=== PATIENT | male | born 1965 | race Caucasian/White ===

== ENCOUNTER 2023-02-25 09:51 | Outpatient (OUT) | payer MEDICAID, SELFPAY ==
[2023-02-25 10:56] LABS: Alanine Aminotransferase 45 U/L (16-63); Albumin Globulin Ratio 1.2; Alkaline Phosphatase 56 U/L (46-116); Aspartate Amino Transferase 29 U/L (15-37); Bilirubin Direct 0.2 mg/dL (0.0-0.2); Bilirubin Total 0.6 mg/dL (0.2-1.0); Globulin 3.4 g/dL; Total Protein 7.4 g/dL (6.4-8.2)
== END 2023-02-25 09:52 | disposition home or self-care (01) ==
PROVIDERS: Visit Provider Internal Medicine Interventional Cardiology
DX: E78.2 Mixed hyperlipidemia (principal)
CPT/HCPCS: 36415; 80076

== ENCOUNTER 2023-03-17 10:56 | Outpatient (OUT) | payer MEDICAID, SELFPAY ==
[2023-03-17 11:50] LABS: Alanine Aminotransferase 51 U/L (16-63); Albumin Globulin Ratio 1.3; Alkaline Phosphatase 55 U/L (46-116); Anion Gap 10.3; Aspartate Amino Transferase 34 U/L (15-37); BUN Creatinine Ratio 14.2; Bilirubin Total 0.5 mg/dL (0.2-1.0); Calcium 8.8 mg/dL (8.5-10.1); Carbon Dioxide 30.1 mmol/L (21.0-32.0); Chloride 103 mmol/L (98-107); Estimated GFR (African America >60 (>=60); Estimated GFR (Non-African Ame >60 (>=60); Glucose 141 mg/dL (74-106); Potassium 4.4 mmol/L (3.5-5.1); Sodium 139 mmol/L (136-145)
== END 2023-03-17 10:57 | disposition home or self-care (01) ==
PROVIDERS: PCP Family Medicine; Visit Provider Family Medicine
DX: Z13.1 Encounter for screening for diabetes mellitus (principal)
CPT/HCPCS: 36415; 80053

== ENCOUNTER 2023-03-30 10:12 | Outpatient (OUT) | payer MEDICAID, SELFPAY ==
[2023-03-30 12:06] LABS: Estimated Average Glucose 154 mg/dL
== END 2023-03-30 10:13 | disposition home or self-care (01) ==
LOC: LAB 10:18
PROVIDERS: PCP Family Medicine; Visit Provider Family Medicine
DX: R73.01 Impaired fasting glucose (principal)
CPT/HCPCS: 36415; 83036

== ENCOUNTER 2023-04-11 11:16 | Emergency (ER) | payer MEDICAID, SELFPAY ==
[2023-04-11 11:19] VITALS: PULSE 77; RESP 18; TEMP 36.9; O2SAT 97; BMI 41.6
[2023-04-11 11:58] LABS: Bilirubin Urine NEGATIVE (NEGATIVE); Blood Urine LARGE (NEGATIVE); Clarity Urine CLEAR (CLEAR); Color Urine YELLOW (YELLOW); Glucose Urine UA NEGATIVE (NEGATIVE); Ketones Urine NEGATIVE (NEGATIVE); Leukocyte Esterase Urine TRACE (NEGATIVE); Nitrite Urine NEGATIVE (NEGATIVE); Protein Urine TRACE mg/dL (NEG/TRACE); Specific Gravity Urine >=1.030 (1.005-1.025); pH Urine 5.5 (5.0-9.0)
[2023-04-11 12:08] LABS: Urine Microscopic Indicated YES
[2023-04-11 12:09] LABS: Bacteria Urine TRACE #/HPF (NONE SEEN); Mucus Urine NONE SEEN (NONE SEEN); Squamous Epithelial Cell Urine NONE SEEN #/LPF (NONE/RARE); WBC Urine 0-2 #/HPF (NONE SEEN)
[2023-04-11 12:10] LABS: Urine Culture Indicated NO
[2023-04-11] MEDS: KETOROLAC TROMETHAMINE 30 MG/ML VIAL IVP (12:36)
[2023-04-11] MEDS: HYDROMORPHONE HCL 1 MG/ML CARTRIDGE IVP (12:36)
--- NOTE | 2023-04-11 12:48 | CT_ITS ---
The [address] [address] Patient Name: MADELIN PULIDO MRN: [id number] date: 1965 Sex: M Assigned Patient Location: ER Current Patient Location: ER Accession/Order Number: [id number] Exam Date: 04/11/2023 12:44 Report Date: 04/11/2023 13:07 At the request of: BRYNN MIRANDA Procedure: CT abdomen pelvis wo con EXAM: CT abdomen pelvis wo con HISTORY: kidney stone COMPARISON: None. TECHNIQUE: Axial CT images were obtained of the abdomen and pelvis without intravenous contrast. Multiplanar reconstructions were performed. ABDOMEN/PELVIS FINDINGS: Lower Chest: Unremarkable. Liver: Hepatic steatosis is present. Biliary/Gallbladder: Unremarkable. Pancreas: Unremarkable. Spleen: Unremarkable. Adrenal Glands: Unremarkable. Kidneys: Mild right-sided hydronephrosis is present with a 3.3 mm calculus present in the urinary bladder lumen. There are a few nonobstructive punctate renal calculi present in the left kidney. Gastrointestinal/Peritoneum: No acute abnormality. The appendix is unremarkable. No free air or free fluid. Vascular: Mild scattered atherosclerotic calcifications are present. Lymph Nodes: No enlarged lymph nodes by CT size criteria. Pelvic Organs: Unremarkable. Bladder: Unremarkable. Bones: No acute osseous abnormality. Soft tissues: There is a small fat-containing right inguinal hernia. CT/CT abdomen pelvis wo con IMPRESSION: 1. Mild right-sided hydronephrosis with a 3.3 mm calculus in the urinary bladder. 2. Hepatic steatosis. 3. Small fat-containing right inguinal hernia. Electronically authenticated by: DRU CREWS Date: 04/11/2023 13:07
--- NOTE | 2023-04-11 13:27 | ED_ITS ---
HPI - Male Genitourinary General Chief complaint: Urogenital-Male Stated complaint: UTI SYMPTOMS, RIGHT FLANK PAIN Time Seen by Provider: 04/11/23 12:23 Source: patient Mode of arrival: walk-in Limitations: no limitations History of Present Illness HPI Narrative: this patient presents with complaint of right sided flank pain. He's had kidnney stones before. He doesn't know if he had a kidney infection or not. He is not on any antibiotics. He has not had fever shakes or chills. He's not seen a gross blood in his urine. He does have some discomfort over his right flank area. Related Data Allergies Allergy/AdvReac Type Severity Reaction Status Date / Time No Known Drug Allergies Allergy Verified 04/11/23 11:18 PFSH PFSH Social History Smoking status: Current every day smoker Exam Narrative Exam Narrative: wasn't awake alert moderate discomfort at this time. A quick urine specimen was obtained and sent to lab. It disclosed blood but no indication of white blood cells or infection. He was then examined and after the exam and history was sent for CT of the abdomen to rule out ureterolithiasis. Overall assessment moderate discomfort. He is very stoic and moves about comfortably. Examination abdomen there is no guarding rebound rigidity or peritoneal findings. Perkins sign is negative. He has no tenderness in the right lower q uadrant. Heart and lung examination was normal. He was given analgesics and sent for imaging. Constitutional Vital Signs, click to edit/add: Last Vital Signs Temp 98.4 F 04/11/23 11:19 Pulse 77 04/11/23 11:19 Resp 18 04/11/23 11:19 Pulse Ox 97 04/11/23 11:19 O2 Del Method Room Air 04/11/23 11:19 Course Vital Signs Vital signs: Vital Signs Temperature 98.4 F 04/11/23 11:19 Pulse Rate 77 04/11/23 11:19 Respiratory Rate 18 04/11/23 11:19 Pulse Oximetry 97 04/11/23 11:19 Oxygen Delivery Method Room Air 04/11/23 11:19 Temperature 98.4 F 04/11/23 11:19 Pulse Rate 77 04/11/23 11:19 Respiratory Rate 18 04/11/23 11:19 Pulse Oximetry 97 04/11/23 11:19 Oxygen Delivery Method Room Air 04/11/23 11:19 MDM - Male Genitourinary MDM Narrative Medical decision making narrative: patient's CT scan confirms some mild hydronephrosis on the right kidney but no other stones other than a 3.3 mm stone in the urinary bladder. It's quite likely these passed the stone. He has some small residual stones left. I don't believe he needs further treatment but we will give him urology number for follow-up as needed Lab Data Labs: Lab Results 04/11/23 Range/Units 11:27 Urine Color Yellow (YELLOW) Urine Clarity Clear (CLEAR) Urine pH 5.5 (5.0-9.0) Ur Specific Collins >=1.030 A (1.005-1.025) Urine Protein Trace (NEG/TRACE) mg/dL Urine Glucose (UA) Negative (NEGATIVE) mg/dL Urine Ketones Negative (NEGATIVE) mg/dL Urine Occult Blood Large A (NEGATIVE) Urine Nitrite Negative (NEGATIVE) Urine Bilirubin Negative (NEGATIVE) Urine Urobilinogen 1.0 (0.2-1.0) EU/dL Ur Leukocyte Esterase Trace A (NEGATIVE) Urine RBC 5-10 A (0-2) #/HPF Urine WBC 0-2 A (NONE SEEN) #/HPF Ur Squamous Epith Cells None seen (NONE/RARE) #/LPF Urine Bacteria Trace A (NONE SEEN) #/HPF Urine Mucus None seen (NONE SEEN) Ur Culture Indicated? No Discharge Plan Discharge Chief Complaint: Urogenital-Male Clinical Impression: Kidney stone Patient Disposition: Home, Self-Care Time of Disposition Decision: 13:31 Additional Instructions: continued drink plenty of fluids. Follow-up with local urology Dr. Desir as necessary Stand Alone Forms: Portal Instructions Referrals: LJ RIBEIRO [Primary Care Provider] - 1 week
== END 2023-04-11 13:59 | disposition home or self-care (01) ==
PROVIDERS: Emergency Provider Emergency Medicine Emergency Medical Services; PCP Family Medicine
DX: N13.2 Hydronephrosis with renal and ureteral calculous obstruction (principal); Z87.442 Personal history of urinary calculi; K76.0 Fatty (change of) liver, not elsewhere classified; K40.90 Unilateral inguinal hernia, without obstruction or gangrene, not specified as recurrent; F17.210 Nicotine dependence, cigarettes, uncomplicated
CPT/HCPCS: 74176; 81001; 96374; 96375; 99284; J1170

== ENCOUNTER 2023-12-20 09:24 | Outpatient (OUT) | payer MEDICAID, SELFPAY ==
[2023-12-20 11:38] LABS: Estimated Average Glucose 128 mg/dL; Glycohemoglobin A1C 6.1 % (4.5-6.2)
[2023-12-20 11:46] LABS: Chol HDL Ratio 3.3; Cholesterol 136 mg/dL (<=200); HDL Cholesterol 41 mg/dL (40-60); LDL Cholesterol Calculated 66.6 mg/dL; Triglycerides 142 mg/dL (<=150); VLDL CHOLESTEROL 28.4 mg/dL
== END 2023-12-20 09:25 | disposition home or self-care (01) ==
LOC: LAB 09:25
PROVIDERS: PCP Family Medicine; Visit Provider Family Medicine
DX: E11.65 Type 2 diabetes mellitus with hyperglycemia (principal)
CPT/HCPCS: 36415; 80061; 83036

== ENCOUNTER 2023-12-20 09:30 | Outpatient (OUT) | payer MEDICAID, SELFPAY ==
[2024-01-03 13:54] LABS: Chol HDL Ratio 3.3; Cholesterol 136 mg/dL (<=200); HDL Cholesterol 41 mg/dL (40-60); Triglycerides 142 mg/dL (<=150); VLDL CHOLESTEROL 28.4 mg/dL
== END 2023-12-20 09:31 | disposition home or self-care (01) ==
LOC: LAB 09:31
PROVIDERS: PCP Family Medicine; Visit Provider Internal Medicine Interventional Cardiology
DX: E78.5 Hyperlipidemia, unspecified (principal)
CPT/HCPCS: 36415; 80061; 83036

== ENCOUNTER 2025-01-18 09:18 | Outpatient (OUT) | payer MEDICAID, SELFPAY ==
--- OUTSIDE RECORDS SUMMARY | 2025-01-18 09:20 | XMS_ITS | CCD ---
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 Name Role Phone BERNARDA MCCONNELL Admitting Unavailable BERNARDA MCCONNELL Attending Unavailable GEMA ., DR CALHOUN Primary Care Unavailable BERNARDA MCCONNELL Admitting Unavailable MALLY, BERNARDA Attending Unavailable GEMA ., DR CALHOUN Primary Care Unavailable BERNARDA MCCONNELL Consulting Unavailable MALLY, BERNARDA Admitting Unavailable MALLY, BERNARDA Attending Unavailable GEMA ., DR CALHOUN Primary Care Unavailable BERNARDA MCCONNELL Consulting Unavailable BERNARDA MCCONNELL Admitting Unavailable MALLY, BERNARDA Attending Unavailable GEMA ., DR CALHOUN Primary Care Unavailable BERNARDA MCCONNELL Attending Unavailable Lj Ribeiro MD Primary Care Provider [phone] Lj Ribeiro MD Unavailable [phone] Lj Ribeiro MD Unavailable LJ RIBEIRO Attending Unavailable LJ RIBEIRO Attending Unavailable Allergies Allergy Classification Reported Allergen(s) Allergy Type Date of Onset Reaction(s) Facility (4 sources) atorvastatin; Translations: [ATORVASTATIN] Drug Allergy 11-03-2022 [facility] Repository (3 sources) tomato allergenic extract Drug Allergy 01-16-2014 [facility] Work Phone: Medications Current Medications Medication Drug Class(es) Dates Sig (Normalized) Sig (Original) 1 ml alirocumab 75 mg/ml auto-injector (3 sources) PCSK9 Inhibitor Start: 03-21-2023 Praluent 75 MG/ML injection Inject 75 mg under the skin every 14 (fourteen) days. 03/21/2023 Active ascorbic acid 60 mg / beta carotene 5000 unt / copper sulfate 40 mg / dl-alpha tocopheryl acetate 30 unt / sodium selenite 0.04 mg / zinc oxide 40 mg oral tablet (3 sources) Vitamin C Multiple Vitamin (Multivitamin Adult) tablet 1 (one) time each day at the same time. Active aspirin 81 mg delayed release oral tablet (3 sources) Platelet Aggregation Inhibitor, Nonsteroidal Anti-inflammatory Drug take 1 tablet by mouth in the morning aspirin 81 MG EC tablet Take 81 mg by mouth in the morning. Active ezetimibe 10 mg oral tablet (3 sources) Dietary Cholesterol Absorption Inhibitor take 1 tablet by mouth in the morning ezetimibe (Zetia) 10 MG tablet Take 10 mg by mouth in the morning. Active fenofibrate 160 mg oral tablet (3 sources) Peroxisome Proliferator Receptor alpha Agonist take 1 tablet by mouth in the morning fenofibrate (Triglide) 160 MG tablet Take 160 mg by mouth in the morning. Active 24 hr isosorbide mononitrate 30 mg extended release oral tablet (3 sources) Nitrate Vasodilator take 1 tablet by mouth in the morning, then take 1 tablet by mouth every twenty-four hours isosorbide mononitrate ER (Imdur) 30 MG 24 hr tablet Take 30 mg by mouth in the morning. Active metoprolol tartrate 25 mg oral tablet (3 sources) beta-Adrenergic Robin take 0.5 tablet by mouth in the morning metoprolol tartrate (Lopressor) 25 MG tablet Take 0.5 tablets by mouth in the morning and 0.5 tablets before bedtime. Active nitroglycerin 0.4 mg sublingual tablet (3 sources) Nitrate Vasodilator nitroglycerin (Nitrostat) 0.[address] 0.4 mg under the tongue every 5 (five) minutes if needed for chest pain. Active 12 hr ranolazine 1000 mg extended release oral tablet (3 sources) Anti-anginal Start: 03-31-2023 take 1 tablet by mouth every twelve hours in the morning ranolazine (Ranexa) 1000 MG 12 hr tablet Take 1,000 mg by mouth in the morning and 1,000 mg before bedtime. 03/31/2023 Active rosuvastatin calcium 40 mg oral tablet (3 sources) HMG-CoA Reductase Inhibitor take 1 tablet by mouth at bedtime rosuvastatin (Crestor) 40 MG tablet Take 40 mg by mouth at bedtime. Active Problems Active Problems Problem Classification Problem Date Documented Date Episodic/Chronic Complication of device; implant or graft (2 sources) Arteriosclerosis of autologous vein coronary artery bypass graft; Translations: [Atherosclerosis of coronary artery bypass graft(s) without angina pectoris] Onset: 07-09-2024 07-09-2024 Chronic Coronary atherosclerosis and other heart disease (11 sources) Atherosclerotic heart disease of [place] coronary artery without angina pectoris; Translations: [Coronary arteriosclerosis] Onset: 02-19-2022 Chronic Coronary atherosclerosis and other heart disease (2 sources) Presence of aortocoronary bypass graft; Translations: [Presence of aortocoronary bypass graft] Onset: 02-23-2024 Episodic Diabetes mellitus with complications (1 source) Hyperglycemia due to type 2 diabetes mellitus; Translations: [Type 2 diabetes mellitus with hyperglycemia] Onset: 05-22-2023 05-22-2023 Chronic Diabetes mellitus without complication (4 sources) Type 2 diabetes mellitus without complication; Translations: [Type 2 diabetes mellitus without complications] Onset: 05-22-2023 07-09-2024 Chronic Disorders of lipid metabolism (14 sources) Mixed hyperlipidemia; Translations: [Dyslipidemia] Onset: 07-05-2022 Resolved: 12-28-2023 Chronic Esophageal disorders (3 sources) Gastroesophageal reflux disease without esophagitis; Translations: [Gastro-esophageal reflux disease without esophagitis] Onset: 05-16-2023 05-16-2023 Chronic Essential hypertension (5 sources) Hypertensive disorder; Translations: [Essential (primary) hypertension] Onset: 05-22-2023 05-22-2023 Chronic Other nutritional; endocrine; and metabolic disorders (3 sources) Morbid obesity; Translations: [Morbid (severe) obesity due to excess calories] Onset: 05-16-2023 05-16-2023 Chronic Other nutritional; endocrine; and metabolic disorders (3 sources) Metabolic syndrome X; Translations: [Dysmetabolic syndrome X] Onset: 05-22-2023 05-22-2023 Chronic Pulmonary heart disease (4 sources) Pulmonary hypertension; Translations: [Pulmonary hypertension, unspecified] Onset: 07-09-2024 07-09-2024 Chronic Past or Other Problems Problem Classification Problem Date Documented Date Episodic/Chronic Other screening for suspected conditions (not mental disorders or infectious disease) (5 sources) Abnormal result of other cardiovascular function study; Translations: [Electrocardiogram abnormal] Onset: 07-05-2022 Resolved: 12-28-2023 Episodic Results Test Name Value Interpretation Reference Range Facil ity Office Visiton 02-23-2024 Follow-up visit [id number] Tip Sampson Jr. 1965 M Date Provider Department Center 02/23/2024 BERNARDA ANDUJAR Family History Family history unknown: Yes Level of Service:22102 CO OFFICE/OUTPATIENT ESTABLISHED LOW MDM 20 MIN Normal [facility] 36on 01-30-2024 36 I spoke with patient yesterday and made him aware that Dr. Mcconnell must not have realized that he hadn't been seen in the office in over a year. I made him an apt. Normal [facility] Telephoneon 01-11-2024 Telephone [id number] Tip Sampson Jr. 1965 M Date Provider Department Center 01/11/2024 SAGE LIND NIC Loza Family History Family history unknown: Yes Normal [facility] LIPID PROFILEon 11-12-2022 CHOL-HDL RATIO NORM SEE BELOW Normal [facility] Comment on above: Result Comment: 3.3 - 4.4 LOW RISK 4.4 - 7.1 AVERAGE RISK 7.1 - 11.0 MODERATE RISK >11.0 HIGH RISK Performed By: #### L IPID, LIVER #### [facility] [address] [place] [address] Dr. Carlos Reinoso Cholesterol [Mass/Vol] 210 mg/dL Critically high <=200 [facility] Comment on above: Performed By: #### L IPID, LIVER #### [facility] [address] [address] [address] Carlos Reinoso Cholesterol in HDL [Mass/Vol] 45 mg/dL Normal 40-60 [facility] Comment on above: Performed By: #### L IPID, LIVER #### [facility] [address] [place] [address] Dr. Carlos Reinoso Cholesterol in LDL [Mass/Vol] 135.6 mg/dL Normal [facility] Comment on above: Performed By: #### L IPID, LIVER #### [facility] [address] [address] [address] Carlos Reinoso Cholesterol.total/ Cholesterol in HDL [Mass ratio] 4.7 {ratio} Normal [facility] Comment on above: Performed By: #### L IPID, LIVER #### [facility] [address] [address] [address] Carlos Reinoso HDL NORMAL > or = 60 mg/dl - LOW CARDIOVASCULAR RISK <40 mg/dl - HIGH CARDIOVASCULAR RISK Normal [facility] Comment on above: Performed By: #### L IPID, LIVER #### [facility] [address] [address] [address] Carlos Reinoso LDL CALC NORMAL SEE BELOW Normal [facility] Comment on above: Result Comment: <100 mg/dl OPTIMAL 100 - 129 mg/dl NEAR OR ABOVE OPTIMAL 130 - 159 mg/dl BORDERLINE HIGH 160 - 189 mg/dl HIGH >190 mg/dl VERY HIGH Performed By: #### L IPID, LIVER #### [facility] [address] [address] [address] Carlos Reinoso Triglyceride [Mass/Vol] 147 mg/dL Normal <=150 [facility] Comment on above: Performed By: #### L IPID, LIVER #### [facility] [address] [address] [address] Carlos Reinoso VLDL CALC 29.4 mg/dL Normal [facility] Comment on above: Performed By: #### L IPID, LIVER #### [facility] [address] [address] [address] Carlos Reinoso LIVER PROFILEon 11-12-2022 Albumin [Mass/Vol] 3.6 g/dL Normal 3.4-5.0 [facility] Comment on above: Performed By: #### L IPID, LIVER #### [facility] [address] [address] [address] Carlos Reinoso Albumin/Globulin [Mass ratio] 1.0 {ratio} Normal [facility] Comment on above: Performed By: #### L IPID, LIVER #### [facility] [address] [address] [address] Carlos Reinoso ALP [Catalytic activity/Vol] 53 U/L Normal 46-116 [facility] Comment on above: Performed By: #### L IPID, LIVER #### [facility] [address] [address] [address] Carlos Reinoso ALT [Catalytic activity/Vol] 51 U/L Normal 16-63 [facility] Comment on above: Performed By: #### L IPID, LIVER #### [facility] [address] [address] [address] Carlos Reinoso AST [Catalytic activity/Vol] 25 U/L Normal 15-37 [facility] Comment on above: Performed By: #### L IPID, LIVER #### [facility] [address] [address] [address] Carlos Reinoso BILI, CONJUGATED 0.1 mg/dL Normal 0.0-0.2 [facility] Comment on above: Performed By: #### L IPID, LIVER #### [facility] [address] [place] [address] Dr. Carlos Reinoso Bilirubin [Mass/Vol] 0.4 mg/dL Normal 0.2-1.0 [facility] Comment on above: Performed By: #### L IPID, LIVER #### [facility] [address] [address] [address] Carlos Reinoso Globulin (S) [Mass/Vol] 3.5 g/dL Normal [facility] Comment on above: Performed By: #### L IPID, LIVER #### [facility] [address] [address] [address] Carlos Reinoso Protein [Mass/Vol] 7.1 g/dL Normal 6.4-8.2 [facility] Comment on above: Performed By: #### L IPID, LIVER #### [facility] [address] [address] [address] Carlos Reinoso LIPID PROFILEon 02-19-2022 CHOL-HDL RATIO NORM SEE BELOW Normal [facility] Comment on above: Result Comment: 3.3 - 4.4 LOW RISK 4.4 - 7.1 AVERAGE RISK 7.1 - 11.0 MODERATE RISK >11.0 HIGH RISK Performed By: #### L IPID, LIVER #### [facility] [address] [address] [address] Carlos Reinoso Cholesterol [Mass/Vol] 177 mg/dL Normal <=200 [facility] Comment on above: Performed By: #### L IPID, LIVER #### [facility] [address] [address] [address] Carlos Reinoso Cholesterol in HDL [Mass/Vol] 40 mg/dL Normal 40-60 [facility] Comment on above: Performed By: #### L IPID, LIVER #### [facility] [address] [address] [address] Carlos Reinoso Cholesterol in LDL [Mass/Vol] 108.0 mg/dL Normal [facility] Comment on above: Performed By: #### L IPID, LIVER #### [facility] [address] [address] [address] Carlos Reinoso Cholesterol.total/ Cholesterol in HDL [Mass ratio] 4.4 {ratio} Normal [facility] Comment on above: Performed By: #### L IPID, LIVER #### [facility] [address] [place] [address] Dr. Carlos Reinoso HDL NORMAL > or = 60 mg/dl - LOW CARDIOVASCULAR RISK <40 mg/dl - HIGH CARDIOVASCULAR RISK Normal [facility] Comment on above: Performed By: #### L IPID, LIVER #### [facility] [address] [address] [address] Carlos Reinoso LDL CALC NORMAL SEE BELOW Normal [facility] Comment on above: Result Comment: <100 mg/dl OPTIMAL 100 - 129 mg/dl NEAR OR ABOVE OPTIMAL 130 - 159 mg/dl BORDERLINE HIGH 160 - 189 mg/dl HIGH >190 mg/dl VERY HIGH Performed By: #### L IPID, LIVER #### [facility] [address] [address] [address] Carlos Reinoso Triglyceride [Mass/Vol] 145 mg/dL Normal <=150 [facility] Comment on above: Performed By: #### L IPID, LIVER #### [facility] [address] [address] [address] Carlos Reinoso VLDL CALC 29.0 mg/dL Normal [facility] Comment on above: Performed By: #### L IPID, LIVER #### [facility] [address] [address] [address] Carlos Reinoso LIVER PROFILEon 02-19-2022 Albumin [Mass/Vol] 3.8 g/dL Normal 3.4-5.0 [facility] Comment on above: Performed By: #### L IPID, LIVER #### [facility] [address] [place] [address] Dr. Carlos Reinoso Albumin/Globulin [Mass ratio] 1.2 {ratio} Normal [facility] Comment on above: Performed By: #### L IPID, LIVER #### [facility] [address] [place] [address] Dr. Carlos Reinoso ALP [Catalytic activity/Vol] 59 U/L Normal 46-116 [facility] Comment on above: Performed By: #### L IPID, LIVER #### [facility] [address] [place] [address] Dr. Carlos Reinoso ALT [Catalytic activity/Vol] 57 U/L Normal 16-63 [facility] Comment on above: Performed By: #### L IPID, LIVER #### [facility] [address] [place] [address] Dr. Carlos Reinoso AST [Catalytic activity/Vol] 41 U/L Critically high 15-37 [facility] Comment on above: Performed By: #### L IPID, LIVER #### [facility] [address] [place] [address] Dr. Carlos Reinoso BILI, CONJUGATED 0.1 mg/dL Normal 0.0-0.2 [facility] Comment on above: Performed By: #### L IPID, LIVER #### [facility] [address] [place] [address] Dr. Carlos Reinoso Bilirubin [Mass/Vol] 0.6 mg/dL Normal 0.2-1.0 [facility] Comment on above: Performed By: #### L IPID, LIVER #### [facility] [address] [place] [address] Dr. Carlos Reinoso Globulin (S) [Mass/Vol] 3.1 g/dL Normal [facility] Comment on above: Performed By: #### L IPID, LIVER #### [facility] [address] [place], [place] [address] Dr. Carlos Reinoso Protein [Mass/Vol] 6.9 g/dL Normal 6.4-8.2 [facility] Comment on above: Performed By: #### L IPID, LIVER #### [facility] [address] [place], [place] [address] Dr. Carlos Reinoso Vital Signs Date Time Vital Sign Value Performing Clinician Faci lity 07-09-2024 08:26-0500 Body height 170.2 cm Lj Ribeiro MD Work Phone: [facility] 07-09-2024 08:26-0500 Body mass index (BMI) [Ratio] 36.65 kg/m2 Lj Ribeiro MD Work Phone: [facility] 07-09-2024 08:26-0500 Body weight 106.14 kg Lj Ribeiro MD Work Phone: [facility] 07-09-2024 08:26-0500 Diastolic blood pressure 72 mm[Hg] Lj Ribeiro MD Work Phone: [facility] 07-09-2024 08:26-0500 Heart rate 58 /min Lj Ribeiro MD Work Phone: [facility] 07-09-2024 08:26-0500 SaO2% (BldA) [Mass fraction] 98 % Lj Ribeiro MD Work Phone: [facility] 07-09-2024 08:26-0500 Systolic blood pressure 132 mm[Hg] Lj Ribeiro MD Work Phone: [facility] Encounters Encounter Date Encounter Type Care Provider Facility Start: 07-09-2024 End: 07-09-2024 Bamboo flowsheet Lj Ribeiro MD Work Phone: [facility] Start: 07-09-2024 End: 07-09-2024 Bamboo flowsheet Lj Ribeiro MD Work Phone: [facility] Start: 07-09-2024 End: 07-09-2024 Office outpatient visit 25 minutes Lj Ribeiro MD Work Phone: [facility] Comment on above: Primary hypertension (CMS/HCC) (Primary Dx); Coronary artery disease involving [place] coronary artery of [place] heart without angina pectoris (CMS/HCC); Type 2 diabetes mellitus without complication, without long-term current use of insulin (CMS/HCC); Mixed dyslipidemia (CMS/HCC); Pulmonary hypertension (CMS/HCC) Start: 07-09-2024 End: 07-09-2024 ambulatory LJ RIBEIRO Not Available Start: 02-23-2024 End: 02-23-2024 ambulatory [facility] Start: 01-09-2024 End: 01-09-2024 ambulatory LJ RIBEIRO Not Available Start: 11-28-2022 ambulatory [facility] ty:H1 Start: 11-12-2022 End: 11-13-2022 ambulatory [facility] Facility:H1 Start: 03-10-2022 ambulatory [facility] ty:H1 Start: 02-19-2022 End: 02-20-2022 ambulatory [facility] Facility:H1 Procedures Date Procedure Procedure Detail Performing Clinician Start: 08-05-2020 Colonoscopy Lj short MD Work Phone: Plan of Treatment Date Care Activity Detail Author Start: 08-05-2030 Screening for malign ant neoplasm of colon [facility] Start: 07-09-2024 End: 07-09-2024 Patient encounter procedure 07/09/2024 8:30 AM EST Office Visit [facility] [address] [place] [address] Lj Ribeiro MD [address] [place] [address] (Fax) Arrived [facility] Comment on above: Arrived Start: 04-07-2024 Influenza vaccination Influenza Vacc ine (#1) [facility] Start: 06-30-2023 Hemoglobin A1c measurement Diabetes: Hemoglobin A1C [facility] Start: 02-09-1983 Urine screening for protein Diabetes: Urine Protein Screening [facility] Start: 02-09-1974 Glaucoma screening Diabetes: R etinopathy Screening [facility] Start: 1965 Screening for malign ant neoplasm of colon [facility] Immunizations Immunization Date Immunization Notes Care Provider Fa shimon 10-31-2018 tetanus toxoid, redu layton diphtheria toxoid, and acellular pertussis vaccine, adsorbed Lj Ribeiro MD Work Phone: [facility] Payers Date Payer Category Payer Medicaid [facility] [id number] 2022 Medicaid [id number] 1965 Unknown [id number] 1965 Unknown [id number] 1965 Unknown [id number] 1965 Unknown [id number] 1965 Unknown [id number] 1965 Unknown [id number] 1960 Self-pay 1960 Unknown [id number] Social History Date Type Detail Facility Start: 05-21-2023 Tobacco smoking stat [facility] Never smoked tobacco [facility] Start: 05-21-2023 Tobacco use and exposure Smoke less tobacco non-user [facility] Start: 01-09-2024 End: 07-09-2024 Alcoholic beverage intake Ex-drinker (finding) [facility] Start: 01-09-2024 End: 07-09-2024 History of Social function [facility] Start: 01-09-2024 End: 07-09-2024 Tobacco use panel [facility] Start: 1965 Sex assigned at Not on file [facility] History of Present illness Narrative 07-09-2024 Lj Ribeiro MD - 07/09/2024 8:30 AM EST Note Date & Type Note Facility 07-09-2024 History of Presen t illness Narrative Images from the original note were not included. Patient ID: Tip Sampson is a 59 y.o. male who presents for: Hypertension Patient is here for follow-up of elevated blood pressure. He is not exercising and is not adherent to a low-salt diet. Blood pressure is well controlled at home. Cardiac symptoms: none. Patient denies chest pain, dyspnea, irregular heart beat, lower extremity edema, and palpitations. Cardiovascular risk factors: advanced age (older than 55 for men, 65 for women), diabetes mellitus, dyslipidemia, hypertension, male gender, obesity (BMI >= 30 kg/m2), and sedentary lifestyle. Use of agents associated with hypertension: none. History of target organ damage: none. Hyperlipidemia Pt who presents for follow-up of dyslipidemia. A repeat fasting lipid profile was not done. The patient does not use medications that may worsen dyslipidemias (corticosteroids, progestins, anabolic steroids, diuretics, beta-blockers, amiodarone, cyclosporine, olanzapine). Exercise: never. Diabetes Mellitus Patient presents for follow up of diabetes. Current symptoms include: none. Symptoms have stabilized. Patient denies increased appetite, paresthesia of the feet, polydipsia, polyuria, and visual disturbances. Evaluation to date has included: hemoglobin A1C. Home sugars: patient does not check sugars. Review of Systems Constitutional: Negative for activity change and fatigue. Respiratory: Negative for cough, shortness of breath and wheezing. Cardiovascular: Negative for chest pain, palpitations and leg swelling. Neurological: Negative for light-headedness and headaches. Objective The patient is pleasant and in no acute distress. The neck is supple and trachea is midline. No masses are appreciated. The heart is regular rate and rhythm without S3, S4. No murmur. The patient has normal respiratory pattern. The breath sounds are symmetrical without evidence of rhonchi or rales. No wheezing. The skin is warm and dry. The lower extremities have trace edema. The patient has good eye contact and speech is clear. Appropriate affect. Visit Vitals BP 132/72 Pulse 58 Ht 5' 7 Wt 234 lb SpO2 98% BMI 36.65 kg/m Smoking Status Never BSA 2.24 m He did bring a paper copy of the hemoglobin A1c test at he was able to have a home kit for. He is at 6. Allergies Allergen Reactions Atorvastatin Other Reaction(s): Unknown Tomato Hives Current Outpatient Medications on File Prior to Visit Medication Sig Dispense Refill aspirin 81 MG EC tablet Take 81 mg by mouth in the morning. ezetimibe (Zetia) 10 MG tablet Take 10 mg by mouth in the morning. fenofibrate (Triglide) 160 MG tablet Take 160 mg by mouth in the morning. isosorbide mononitrate ER (Imdur) 30 MG 24 hr tablet Take 30 mg by mouth in the morning. metoprolol tartrate (Lopressor) 25 MG tablet Take 0.5 tablets by mouth in the morning and 0.5 tablets before bedtime. Multiple Vitamin (Multivitamin Adult) tablet 1 (one) time each day at the same time. nitroglycerin (Nitrostat) 0.[address] 0.4 mg under the tongue every 5 (five) minutes if needed for chest pain. Praluent 75 MG/ML injection Inject 75 mg under the skin every 14 (fourteen) days. ranolazine (Ranexa) 1000 MG 12 hr tablet Take 1,000 mg by mouth in the morning and 1,000 mg before bedtime. rosuvastatin (Crestor) 40 MG tablet Take 40 mg by mouth at bedtime. No current facility-administered medications on file prior to visit. 1. Primary hypertension (CMS/HCC) (Primary) Chronic problem, stable, to goal. We did review and it looks like Dr. Lopez refilled all of his prescriptions for 1 year. 2. Coronary artery disease involving [place] coronary artery of [place] heart without angina pectoris (CMS/HCC) Chronic problem, stable, comanaged with Cardiology. No evidence of angina or anginal equivalents. 3. Type 2 diabetes mellitus without complication, without long-term current use of insulin (CMS/HCC) Chronic problem, stable, to goal. Controlled with lifestyle changes encouraged same 4. Mixed dyslipidemia (CMS/HCC) Chronic problem, stable, to goal with an LDL of 67. 5. Pulmonary hypertension (CMS/HCC) Chronic problem, stable, asymptomatic. Specifically noting no shortness and breath or significant leg edema. Chronic problem The patient meets the criteria for polypharmacy; 5 or more prescriptions or multi-morbidity defined as 5 or more diagnoses. Polypharmacy can significantly increase the risk of preventable adverse drug events and negatively impact adherence. Consideration of diverse factors such as clinician agreement, patient perspective, and de-prescribing, as appropriate can improve patient outcomes while simplifying care. This requires longitudinal monitoring as there is at least a moderate risk of morbidity and requires at least a moderate degree of evaluation and management. documented in this encounter [facility] Progress note 02-23-2024 Note Date & Type Note Facility 02-23-2024 Note [facility] Subjective Tip Sampson Yoli is a 59 y.o. year old male patient being seen for 1 year follow up CAD and hyperlipidemia. Last lipid panel was done in December 2023. He says PCP told him he doesn't think he needs to be on Zetia because he's brought his numbers way down . Denies chest pain, SOB, palpitations, and lightheadedness/syncope. Patient Active Problem List Diagnosis Angina pectoris (CMS/HCC) Cardiovascular stress test abnormal Coronary arteriosclerosis Drug intolerance Dyspnea on exertion Electrocardiogram abnormal Hyperlipidemia Dysmetabolic syndrome X Gastroesophageal reflux disease Hypertension Mixed dyslipidemia Morbid obesity due to excess calories (CMS/HCC) Type 2 diabetes mellitus with hyperglycemia, without long-term current use of insulin (CMS/HCC) Family History Family history unknown: Yes Social History Tobacco Use Smoking status: Never Smokeless tobacco: Never Substance Use Topics Alcohol use: Not Currently HPI Fco is seen in follow up. 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 At a prior visit I added fenofibrate due to elevated TG. Then I added zetia 10 mg daily. At a prior visit I reduced isosorbide mononitrate to 30 mg daily due to low blood pressure and dizziness, this has subsided. At a prior visit due to his symptoms of decreased energy and decreased libido I reduced metoprolol tartrate to 12.5 mg twice daily. This has helped a lot. At a prior visit and due to persistent elevation of LDL and I stressed the need of diet and weight loss. He has done so. I had started him on Praluent. He is also on zetia and rosuvastatin. Today he reports that he has been doing very well with no symptoms of angina. He has no shortness of breath on exertion. Overall clinically he is doing well. He has lost weight and is exercising regularly. Review of Systems Musculoskeletal: Positive for back pain. Neurological: Positive for numbness. Objective Visit Vitals BP 126/72 (BP Location: Left arm, Patient Position: Sitting) Pulse 66 Ht 1.702 m (5' 7 ) Wt 106 kg (234 lb) SpO2 96% BMI 36.65 kg/m??? Smoking Status Never BSA 2.24 m??? Physical Exam Constitutional: Appearance: He is well-developed. He is obese. He is not ill-appearing. HENT: Head: Normocephalic and atraumatic. Nose: Nose normal. Eyes: General: No scleral icterus. Pupils: Pupils are equal, round, and reactive to light. Neck: Thyroid: No thyromegaly. Vascular: No JVD. Cardiovascular: Rate and Rhythm: Normal rate and regular rhythm. Pulses: Radial pulses are 2+ on the right side and 2+ on the left side. Heart sounds: Normal heart sounds. No murmur heard. No friction rub. No gallop. Pulmonary: Effort: Pulmonary effort is normal. No respiratory distress. Breath sounds: Normal breath sounds. No wheezing or rales. Chest: Chest wall: No tenderness. Abdominal: General: Bowel sounds are normal. There is no distension. Palpations: Abdomen is soft. Tenderness: There is no abdominal tenderness. Musculoskeletal: General: No swelling. Cervical back: Neck supple. Skin: General: Skin is warm and dry. Neurological: General: No focal deficit present. Mental Status: He is alert and oriented to person, place, and time. Psychiatric: Mood and Affect: Mood normal. Behavior: Behavior is cooperative. Judgment: Judgment normal. Allergies Allergies Allergen Reactions Atorvastatin Medications Current Outpatient Medications: aspirin 81 mg EC tablet, Take 1 tablet every day by oral route., Disp: , Rfl: fexofenadine (Nalini) 180 mg tablet, Take 1 tablet as needed by oral route for 30 days., Disp: , Rfl: alirocumab (Praluent Pen) 75 mg/mL pen injector, Inject 75 mg under the skin every 14 (fourteen) days., Disp: 6 mL, Rfl: 3 ezetimibe (Zetia) 10 mg tablet, Take 1 tablet (10 mg) by mouth once daily as directed., Disp: 90 tablet, Rfl: 3 fenofibrate (Lofibra) 160 mg tablet, Take 1 tablet (160 mg) by mouth once daily as directed. Need apt for further refills, Disp: 90 tablet, Rfl: 3 isosorbide mononitrate ER (Imdur) 30 mg 24 hr tablet, Take 1 tablet (30 mg) by mouth once daily as directed., Disp: 90 tablet, Rfl: 3 metoprolol tartrate (Lopressor) 25 mg tablet, TAKE 1/2 (ONE-HALF) OF A TABLET BY MOUTH TWICE DAILY, Disp: 90 tablet, Rfl: 3 nitroglycerin (Nitrostat) 0.4 mg SL tablet, Place 1 tablet (0.4 mg) under the tongue every 5 (five) minutes if needed for chest pain., Disp: 25 tablet, Rfl: 3 ranolazine (Ranexa) 1,000 mg 12 hr tablet, Take 1 tablet (1,000 mg) by mouth in the morning and at bedtime. Do not crush, chew, or split., Disp: 180 tablet, Rfl: 3 rosuvastatin (Crestor) 40 mg tablet, (more content not included)... [facility] Evaluation note Note Date & Type Note Facility Evaluation note Diagnosis Primary hypertension (CMS/HCC)- Primary Unspecified essential hypertension Coronary artery disease involving [place] coronary artery of [place] heart without angina pectoris (CMS/HCC) Type 2 diabetes mellitus without complication, without long-term current use of insulin (CMS/HCC) Mixed dyslipidemia (CMS/HCC) Pulmonary hypertension (CMS/HCC) Other chronic pulmonary heart diseases documented in this encounter [facility] Summary Purpose Family History No Family History Records FoundNo Family History Records FoundNo Family History Records Found Advance Directives No Advanced Directives Records FoundNo Advanced Directives Records FoundNo Advanced Directives Records Found Additional Source Comments (unrecognized sect ion and content) No Status Records FoundNo Status Records FoundNo Status Records Found INFORMATION SOURCE (unrecogn ized section and content) DATE CREATED AUTHOR 11/29/2022 [facility] DATE CREATED AUTHOR AUTHOR'S ORGANIZ ATION 02/26/2024 [facility] DATE CREATED AUTHOR AUTHOR'S ORGANIZ ATION 07/10/2024 [facility] Care Teams (unrecognized sec tion and content) [employer] 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 Relationship Specialty Start Date End Date Lj Ribeiro MD [address] [phone] (Fax) PCP - General Family Medicine 12/13/22 Lj Ribeiro MD [address] [place] [address] (Fax) PCP - [facility] 11/06/23 Lj Ribeiro MD [address] [address] (Fax) Family Medicine 12/13/22 [employer] 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 Relationship Specialty Start Date End Date Lj Ribeiro MD [address] [phone] (Fax) PCP - General Family Medicine 12/13/22 Lj Ribeiro MD [address] [address] (Fax) PCP - [facility] 11/06/23 Lj Ribeiro MD [address] [address] Family Medicine 12/13/22 Reason for Visit (unrecogniz ed section and content) Reason Comments Hypertension Hyperlipidemia Diabetes FOR RECORDS PERTAINING TO PATIENTS WHO ARE OR HAVE BEEN ENROLLED IN A CHEMICAL DEPENDENCY/SUBSTANCEABUSE PROGRAM, SOME INFORMATION MAY BE OMITTED. This clinical summary was aggregated from multiple sources. Caution should be exercised in using it in the provision of clinical care. This summary normalizes information from multiple sources, and as a consequence, information in this document may materially change the coding, format and clinical context of patient data. In addition, data may be omitted in some cases. CLINICAL DECISIONS SHOULD BE BASED ON THE PRIMARY CLINICAL RECORDS. [email or web address] [facility]. provides no warranty or guarantee of the accuracy or completeness of information in this document.
[2025-01-18 10:16] LABS: Alanine Aminotransferase 32 U/L (16-63); Albumin Globulin Ratio 1.1; Albumin Level 3.7 g/dL (3.4-5.0); Alkaline Phosphatase 68 U/L (46-116); Aspartate Amino Transferase 22 U/L (15-37); Bilirubin Direct 0.2 mg/dL (0.0-0.2); Bilirubin Total 0.8 mg/dL (0.2-1.0); Cholesterol 97 mg/dL (<=200); Globulin 3.4 g/dL; HDL Cholesterol 48 mg/dL (40-60); LDL Cholesterol Calculated 32.4 mg/dL; Total Protein 7.1 g/dL (6.4-8.2); Triglycerides 83 mg/dL (<=150); VLDL CHOLESTEROL 16.6 mg/dL
== END 2025-01-18 09:19 | disposition home or self-care (01) ==
LOC: LAB 09:18
PROVIDERS: PCP Family Medicine; Visit Provider Internal Medicine Interventional Cardiology
DX: E78.5 Hyperlipidemia, unspecified (principal)
CPT/HCPCS: 36415; 80061; 80076

== ENCOUNTER 2025-02-19 07:54 | Outpatient (OUT) | payer MEDICAID, SELFPAY ==
--- NOTE | 2025-02-19 08:05 | CA_ITS ---
Patient Name: MADELIN PULIDO MR#: [id number] : 1965 Exam Date: 02/19/2025 Ordering Doctor: DR BERNARDA BAL M.D. ECHOCARDIOGRAM REPORT PROCEDURE: CA ECHO DOPPLER COMPLETE INDICATIONS: CAD, Dizziness COMPARISON: None. DESCRIPTION: COMPLETE ECHOCARDIOGRAM Real-time transthoracic echocardiography with 2D, M-mode, spectral and color flow Doppler performed. QUALITY: Technical quality was good. LEFT VENTRICLE: Normal chamber size. Mildly increased left ventricular wall thickness. LV EF: Global left ventricular systolic function is normal. Calculated left ventricular ejection fraction is 68%. No wall motion abnormalities. DIASTOLIC: Normal diastolic function. ATRIAL SEPTUM: Inadequately seen. LEFT ATRIUM: Normal chamber size. RIGHT ATRIUM: Mild dilatation. RIGHT VENTRICLE: Mildly enlarged. Normal right ventricular systolic function. TRICUSPID VALVE: Normal mobility and thickness. No stenosis with trivial regurgitation. No evidence of pulmonary hypertension. Unable to assess right-sided pressures due to lack of measurable regurgitation. MITRAL VALVE: Normal mobility and thickness. No evidence of mitral valve stenosis. There is no mitral annular calcification. Trivial mitral regurgitation. AORTIC VALVE: Normal trileaflet appearance. Thickened aortic valve. Normal leaflet mobility. No evidence of aortic valve stenosis. No aortic regurgitation. AORTIC ROOT: Normal diameter and appearance. Mild dilatation of the ascending aorta measuring 3.9cm. PULMONIC VALVE: Normal thickness and mobility. No stenosis. Trivial regurgitation. PERICARDIUM: Anterior free space; trivial effusion versus fat pad. IVC: Collapses with inspiration. Normal size. CONCLUSION: 1. Global left ventricular systolic function is normal; visually estimated ejection fraction 60 to 65% 2. The right ventricle is mildly dilated with normal systolic function 3. Mildly increased left ventricular wall thickness 4. Mildly dilated right atrium 5. No significant valvular abnormalities 6. Mildly dilated ascending aorta 7. Anterior free space; trivial effusion versus Adult Echocardiography Procedure Report Left Ventricle LVEDD (3.7 - 5.6 cm): 5.16 cm LVESD (2.2 - 4.0 cm): 3.06 cm LVIVS thickness (0.6 - 1.2 cm): 1.21 cm LVPW thickness (0.5 - 1.0 cm): 1.21 cm e': 0.11 m/s E - e': 6.61 LVOT Max Gradient: 4.71 mm[Hg] LVOT Area (cm2): 1.09 m/s Peak Velocity (LVOT): 1.09 m/s Mean Velocity (LVOT): 0.65 m/s LVOT Diameter 2.07 cm Left Ventricular Ejection Fraction: 67.70 % Left Atrium LA Volume Index (2D A2C): 27.84 ml/m2 Left Atrium Systolic Dimension: 5.08 cm Mitral Valve MV E to A Ratio: 1.05 MV Max Gradient: MV Mean Gradient: Mitral Valve A-Wave Peak Velocity: 0.68 m/s Mitral Valve E-Wave Peak Velocity: 0.71 m/s Cardiovascular Orifice Area: Right Ventricle RV Internal Diastolic Dimension: 4.04 cm Aorta AO Root Diam: 3.58 cm Ascending Ao Diam: 3.91 cm Aortic Valve AoV Area (Peak Jorje): 3.15 cm2, 3.15 cm2 AoV Area (VTI): 3.55 cm2, 3.55 cm2 Deceleration [place]: Pressure Half-Time: Peak Velocity(Antegrade Flow): 1.15 m/s Peak Gradient(Antegrade Flow): 5.33 mm[Hg] Mean Velocity(Antegrade Flow): 0.70 m/s Mean Gradient(Antegrade Flow): 2.36 mm[Hg] Velocity Time Integral: 21.63 cm Tricuspid Valve Peak Velocity (Regurgitant Flow): Peak Velocity: Pulmonic Valve Mean Gradient: 1.85 mm[Hg] Mean Velocity: 0.62 m/s Peak Velocity: 0.93 m/s, 0.96 m/s Peak Gradient: 3.69 mm[Hg], 3.47 mm[Hg] Right Atrium Right Atrium Systolic Pressure: 59.94 ml, 59.94 ml Dictated by: Jacoby Walton M.D. on 02/19/2025 at 18:00 Approved by: Jacoby Walton M.D. on 02/19/2025 at 18:08
--- OUTSIDE RECORDS SUMMARY | 2025-02-19 08:14 | XMS_ITS | CCD ---
Author Organization [facility] Care Team Providers Care Telegraph Installer Name Role Phone BERNARDA MCCONNELL Admitting Unavailable MOUKARBEL, BERNARDA Attending Unavailable HEMEBRUNA ., DR CALHOUN Primary Care Unavailable NETTEUKADENIS, BERNARDA Admitting Unavailable MOUKAADENIKEEL, BERNARDA Attending Unavailable HEMEBRUNA ., DR CALHOUN Primary Care Unavailable BERNARDA MCCONNELL Consulting Unavailable NETTEUKADENIS, BERNARDA Admitting Unavailable MALLY, BERNARDA Attending Unavailable HEMEBRUNA ., DR CALHOUN Primary Care Unavailable BERNARDA MCCONNELL Consulting Unavailable MALLY, BERNARDA Admitting Unavailable MALLY, BERNARDA Attending Unavailable GEMA ., DR CALHOUN Primary Care Unavailable Lj Ribeiro MD Primary Care Provider Lj Ribeiro MD Unavailable Lj Ribeiro MD Unavailable LJ RIBEIRO Attending Unavailable LJ RIBEIRO Attending Unavailable Lj Ribeiro MD Primary Care Provider Lj Ribeiro MD Unavailable Lj Ribeiro MD Unavailable [phone] BERNARDA MCCONNELL Attending Unavailable MALLY, BERNARDA Attending Unavailable Allergies Allergy Classification Reported Allergen(s) Allergy Type Date of Onset Reaction(s) Facility (5 sources) atorvastatin; Translations: [ATORVASTATIN] Drug Allergy 11-03-2022 [facility] (4 sources) tomato allergenic extract Drug Allergy 01-16-2014 [facility] Work Phone: Medications Current Medications Medication Drug Class(es) Dates Sig (Normalized) Sig (Original) 1 ml alirocumab 75 mg/ml auto-injector (4 sources) PCSK9 Inhibitor Start: 03-21-2023 Praluent 75 MG/ML injection Inject 75 mg under the skin every 14 (fourteen) days. 03/21/2023 Active ascorbic acid 60 mg / beta carotene 5000 unt / copper sulfate 40 mg / dl-alpha tocopheryl acetate 30 unt / sodium selenite 0.04 mg / zinc oxide 40 mg oral tablet (4 sources) Vitamin C Multiple Vitamin (Multivitamin Adult) tablet 1 (one) time each day at the same time. Active aspirin 81 mg delayed release oral tablet (4 sources) Platelet Aggregation Inhibitor, Nonsteroidal Anti-inflammatory Drug take 1 tablet by mouth in the morning aspirin 81 MG EC tablet Take 81 mg by mouth in the morning. Active ezetimibe 10 mg oral tablet (4 sources) Dietary Cholesterol Absorption Inhibitor take 1 tablet by mouth in the morning ezetimibe (Zetia) 10 MG tablet Take 10 mg by mouth in the morning. Active fenofibrate 160 mg oral tablet (4 sources) Peroxisome Proliferator Receptor alpha Agonist take 1 tablet by mouth in the morning fenofibrate (Triglide) 160 MG tablet Take 160 mg by mouth in the morning. Active 24 hr isosorbide mononitrate 30 mg extended release oral tablet (4 sources) Nitrate Vasodilator take 1 tablet by mouth in the morning, then take 1 tablet by mouth every twenty-four hours isosorbide mononitrate ER (Imdur) 30 MG 24 hr tablet Take 30 mg by mouth in the morning. Active metoprolol tartrate 25 mg oral tablet (4 sources) beta-Adrenergic Robin take 0.5 tablet by mouth in the morning metoprolol tartrate (Lopressor) 25 MG tablet Take 0.5 tablets by mouth in the morning and 0.5 tablets before bedtime. Active nitroglycerin 0.4 mg sublingual tablet (4 sources) Nitrate Vasodilator nitroglycerin (Nitrostat) 0.[address] 0.4 mg under the tongue every 5 (five) minutes if needed for chest pain. Active 12 hr ranolazine 1000 mg extended release oral tablet (4 sources) Anti-anginal Start: 03-31-2023 take 1 tablet by mouth every twelve hours in the morning ranolazine (Ranexa) 1000 MG 12 hr tablet Take 1,000 mg by mouth in the morning and 1,000 mg before bedtime. 03/31/2023 Active rosuvastatin calcium 40 mg oral tablet (4 sources) HMG-CoA Reductase Inhibitor take 1 tablet by mouth at bedtime rosuvastatin (Crestor) 40 MG tablet Take 40 mg by mouth at bedtime. 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; Translations: [Coronary arteriosclerosis] Onset: 2 Chronic Coronary atherosclerosis and other heart disease (2 sources) Presence of aortocoronary bypass graft; Translations: [Presence of aortocoronary bypass graft] Onset: 5 Episodic Diabetes mellitus with complications (1 source) Hyperglycemia due to type 2 diabetes mellitus; Translations: [Type 2 diabetes mellitus with hyperglycemia] Onset: 3 05-22-2023 Chronic Diabetes mellitus without complication (5 sources) Type 2 diabetes mellitus without complication; Translations: [Type 2 diabetes mellitus without complications] Onset: 3 07-09-2024 Chronic Disorders of lipid metabolism (16 sources) Mixed hyperlipidemia; Translations: [Dyslipidemia] Onset: 2 Resolved: 4 Chronic Esophageal disorders (4 sources) Gastroesophageal reflux disease without esophagitis; Translations: [Gastro-esophageal reflux disease without esophagitis] Onset: 3 05-16-2023 Chronic Essential hypertension (6 sources) Hypertensive disorder; Translations: [Essential (primary) hypertension] Onset: 3 05-22-2023 Chronic Other nutritional; endocrine; and metabolic disorders (4 sources) Morbid obesity; Translations: [Morbid (severe) obesity due to excess calories] Onset: 3 05-16-2023 Chronic Other nutritional; endocrine; and metabolic disorders (4 sources) Metabolic syndrome X; Translations: [Dysmetabolic syndrome X] Onset: 3 05-22-2023 Chronic Other screening for suspected conditions (not mental disorders or infectious disease) (6 sources) Electrocardiogram abnormal; Translations: [Abnormal electrocardiogram [ECG] [EKG]] Onset: 2 Resolved: 4 12-28-2023 Episodic Pulmonary heart disease (5 sources) Pulmonary hypertension; Translations: [Pulmonary hypertension, unspecified] Onset: 4 07-09-2024 Chronic Results Test Name Value Interpretation Reference Range Facil ity Office Visiton 01-20-2025 Follow-up visit [id number] Madelin Pulido Jr. 1965 M Date Provider Department Center 01/20/2025 BERNARDA ANDUJAR Family History Family history unknown: Yes Level of Service:60045 [place] OFFICE/OUTPATIENT ESTABLISHED MOD MDM 30 MIN [facility] Orders Onlyon 01-20-2025 Orders Only [id number] Madelin Pulido Jr. 1965 M Date Provider Department Center 01/20/2025 BERNARDA ANDUJAR Family History Family history unknown: Yes [facility] ALL LIPID PROFILE (FASTING)o n 01-18-2025 CHOL HDL RATIO [address] [facility] hcare Comment on above: 3.3 - 4.4 LOW RISK 4.4 - 7.1 AVERAGE RISK 7.1 - 11.0 MODERATE RISK >11.0 HIGH RISK Cholesterol [Mass/Vol] 97 mg/dL NINF - 200 mg/dL [facility] Cholesterol in HDL [Mass/Vol] 48 mg/dL 40 - 60 mg/dL [facility] Comment on above: > or =60 mg/dl - LOW CARDIOVASCULAR RISK <40 mg/dl - HIGH CARDIOVASCULAR RISK Magnesium [Mass/Vol] 32.4 mg/dL [facility] Comment on above: <100 mg/dl OPTIMAL 100-129 mg/dl NEAR OR ABOVE OPTIMAL 130-159 mg/dl BORDERLINE HIGH 160-189 mg/dl HIGH >190 mg/dl VERY HIGH Magnesium [Mass/Vol] 16.6 mg/dL [facility] Triglyceride [Mass/Vol] 83 mg/dL NINF - 150 mg/dL [facility]HP LIVER PANELon 5 Albumin [Mass/Vol] 3.7 g/dL 3.4 - 5.0 g/dL [facility] ALBUMIN GLOBULIN RATIO 1.1 [facility] ALP [Catalytic activity/Vol] 68 U/L 46 - 116 U/L [facility] ALT [Catalytic activity/Vol] 32 U/L 16 - 63 U/L [facility] AST [Catalytic activity/Vol] 22 U/L 15 - 37 U/L [facility] Bilirubin [Mass/Vol] 0.8 mg/dL 0.2 - 1.0 mg/dL [facility] Bilirubin.indirect [Mass/Vol] 0.2 mg/dL 0.0 - 0.2 mg/dL [facility] Globulin (S) [Mass/Vol] 3.4 g/dL [facility] Protein [Mass/Vol] 7.1 g/dL 6.4 - 8.2 g/dL NO [facility] No Panel Informationon 01-18 [facility] Office Visiton 02-23-2024 Follow-up visit [id number] Madelin Pulido Jr. 1965 M Date Provider Department Center 02/23/2024 BERNARDA NADUJAR [facility] Family History Family history unknown: Yes Level of Service:40413 [place] OFFICE/OUTPATIENT ESTABLISHED LOW MDM 20 MIN Normal [facility] 36on 01-30-2024 36 I spoke with patient yesterday and made him aware that Dr. Mcconnell must not have realized that he hadn't been seen in the office in over a year. I made him an apt. Normal [facility] LIPID PROFILEon 11-12-2022 CHOL-HDL RATIO NORM SEE BELOW Normal [facility] Comment on above: Result Comment: 3.3 - 4.4 LOW RISK 4.4 - 7.1 AVERAGE RISK 7.1 - 11.0 MODERATE RISK >11.0 HIGH RISK Performed By: #### L IPID, LIVER #### [facility] [address] [place], [place] [address] Dr. Carlos Reinoso Cholesterol [Mass/Vol] 210 mg/dL Critically high <=200 [facility] Comment on above: Performed By: #### L IPID, LIVER #### [facility] [address] [place], [place] [address] Dr. Carlos Reinoso Cholesterol in HDL [Mass/Vol] 45 mg/dL Normal 40-60 [facility] Comment on above: Performed By: #### L IPID, LIVER #### [facility] [address] [place] [address] [address] Carlos Reinoso Cholesterol in LDL [Mass/Vol] 135.6 mg/dL Normal [facility] Comment on above: Performed By: #### L IPID, LIVER #### [facility] [address] [place] [address] [address] Carlos Reinoso Cholesterol.total/C holesterol in HDL [Mass ratio] 4.7 {ratio} Normal [facility] Comment on above: Performed By: #### L IPID, LIVER #### [facility] [address] [place] [address] [address] Carlos Reinoso HDL NORMAL > or = 60 mg/dl - LOW CARDIOVASCULAR RISK <40 mg/dl - HIGH CARDIOVASCULAR RISK Normal [facility] Comment on above: Performed By: #### L IPID, LIVER #### [facility] [address] [place] [address] Dr. Carlos Reinoso LDL CALC NORMAL SEE BELOW Normal [facility] Comment on above: Result Comment: <100 mg/dl OPTIMAL 100 - 129 mg/dl NEAR OR ABOVE OPTIMAL 130 - 159 mg/dl BORDERLINE HIGH 160 - 189 mg/dl HIGH >190 mg/dl VERY HIGH Performed By: #### L IPID, LIVER #### [facility] [address] [place] [address] Dr. Carlos Reinoso Triglyceride [Mass/Vol] 147 mg/dL Normal <=150 [facility] Comment on above: Performed By: #### L IPID, LIVER #### [facility] [address] [place] [address] Dr. Carlos Reinoso VLDL CALC 29.4 mg/dL Normal [facility] Comment on above: Performed By: #### L IPID, LIVER #### [facility] [address] [place] [address] [address] Carlos Reinoso LIVER PROFILEon 11-12-2022 Albumin [Mass/Vol] 3.6 g/dL Normal 3.4-5.0 [facility] Comment on above: Performed By: #### L IPID, LIVER #### [facility] [address] [place] [address] [address] Carlos Reinoso Albumin/Globulin [Mass ratio] 1.0 {ratio} Normal [facility] Comment on above: Performed By: #### L IPID, LIVER #### [facility] [address] [place] [address] [address] Carlos Reinoso ALP [Catalytic activity/Vol] 53 U/L Normal 46-116 [facility] Comment on above: Performed By: #### L IPID, LIVER #### [facility] [address] [place] [address] [address] Carlos Reinoso ALT [Catalytic activity/Vol] 51 U/L Normal 16-63 [facility] Comment on above: Performed By: #### L IPID, LIVER #### [facility] [address] [place] [address] [address] Carlos Reinoso AST [Catalytic activity/Vol] 25 U/L Normal 15-37 [facility] Comment on above: Performed By: #### L IPID, LIVER #### [facility] [address] [place] [address] [address] Carlos Reinoso BILI, CONJUGATED 0.1 mg/dL Normal 0.0-0.2 [facility] Comment on above: Performed By: #### L IPID, LIVER #### [facility] [address] [place] [address] [address] Carlos Reinoso Bilirubin [Mass/Vol] 0.4 mg/dL Normal 0.2-1.0 [facility] Comment on above: Performed By: #### L IPID, LIVER #### [facility] [address] [place] [address] [address] Carlos Reinoso Globulin (S) [Mass/Vol] 3.5 g/dL Normal [facility] Comment on above: Performed By: #### L IPID, LIVER #### [facility] [address] [place] [address] [address] Carlos Reinoso Protein [Mass/Vol] 7.1 g/dL Normal 6.4-8.2 [facility] Comment on above: Performed By: #### L IPID, LIVER #### [facility] [address] [place] [address] [address] Carlos Reinoso LIPID PROFILEon 02-19-2022 CHOL-HDL RATIO NORM SEE BELOW Normal [facility] Comment on above: Result Comment: 3.3 - 4.4 LOW RISK 4.4 - 7.1 AVERAGE RISK 7.1 - 11.0 MODERATE RISK >11.0 HIGH RISK Performed By: #### L IPID, LIVER #### [facility] [address] [place] [address] [address] Carlos Reinoso Cholesterol [Mass/Vol] 177 mg/dL Normal <=200 [facility] Comment on above: Performed By: #### L IPID, LIVER #### [facility] [address] [place] [address] [address] Carlos Rienoso Cholesterol in HDL [Mass/Vol] 40 mg/dL Normal 40-60 [facility] Comment on above: Performed By: #### L IPID, LIVER #### [facility] [address] [place] [address] [address] Carlos Reinoso Cholesterol in LDL [Mass/Vol] 108.0 mg/dL Normal [facility] Comment on above: Performed By: #### L IPID, LIVER #### [facility] [address] [place] [address] [address] Carlos Reinoso Cholesterol.total/C holesterol in HDL [Mass ratio] 4.4 {ratio} Normal [facility] Comment on above: Performed By: #### L IPID, LIVER #### [facility] [address] [place] [address] [address] Carlos Reinoso HDL NORMAL > or = 60 mg/dl - LOW CARDIOVASCULAR RISK <40 mg/dl - HIGH CARDIOVASCULAR RISK Normal [facility] Comment on above: Performed By: #### L IPID, LIVER #### [facility] [address] [place] [address] [address] Carlos Reinoso LDL CALC NORMAL SEE BELOW Normal [facility] Comment on above: Result Comment: <100 mg/dl OPTIMAL 100 - 129 mg/dl NEAR OR ABOVE OPTIMAL 130 - 159 mg/dl BORDERLINE HIGH 160 - 189 mg/dl HIGH >190 mg/dl VERY HIGH Performed By: #### L IPID, LIVER #### [facility] [address] [place] [address] [address] Carlos Reinoso Triglyceride [Mass/Vol] 145 mg/dL Normal <=150 [facility] Comment on above: Performed By: #### L IPID, LIVER #### [facility] [address] [place] [address] [address] Carlos Reinoso VLDL CALC 29.0 mg/dL Normal [facility] Comment on above: Performed By: #### L IPID, LIVER #### [facility] [address] [place] [address] [address] Carlos Reinoso LIVER PROFILEon 02-19-2022 Albumin [Mass/Vol] 3.8 g/dL Normal 3.4-5.0 [facility] Comment on above: Performed By: #### L IPID, LIVER #### [facility] [address] [place] [address] Dr. Carlos Reinoso Albumin/Globulin [Mass ratio] 1.2 {ratio} Normal [facility] Comment on above: Performed By: #### L IPID, LIVER #### [facility] [address] [place] [address] Dr. Carlos Reinoso ALP [Catalytic activity/Vol] 59 U/L Normal 46-116 [facility] Comment on above: Performed By: #### L IPID, LIVER #### [facility] [address] [place] [address] Dr. Carlos Reinoso ALT [Catalytic activity/Vol] 57 U/L Normal 16-63 [facility] Comment on above: Performed By: #### L IPID, LIVER #### [facility] [address] [place] [address] Dr. Carlos Reinoso AST [Catalytic activity/Vol] 41 U/L Critically high 15-37 [facility] Comment on above: Performed By: #### L IPID, LIVER #### [facility] [address] [place] [address] Dr. Carlos Reinoso BILI, CONJUGATED 0.1 mg/dL Normal 0.0-0.2 [facility] Comment on above: Performed By: #### L IPID, LIVER #### [facility] [address] [place], [place] [address] Dr. Carlos Reinoso Bilirubin [Mass/Vol] 0.6 mg/dL Normal 0.2-1.0 [facility] Comment on above: Performed By: #### L IPID, LIVER #### [facility] [address] [place], [place] [address] Dr. Carlos Reinoso Globulin (S) [Mass/Vol] 3.1 g/dL Normal [facility] Comment on above: Performed By: #### L IPID, LIVER #### [facility] [address] [place], [place] [address] Dr. Carlos Reinoso Protein [Mass/Vol] 6.9 g/dL Normal 6.4-8.2 [facility] Comment on above: Performed By: #### L IPID, LIVER #### [facility] [address] [place] [address] [address] Carlos Reinoso Vital Signs Date Time Vital Sign Value Performing Clinician Faci lity 07-09-2024 08:26-0500 Body height 170.2 cm Lj Ribeiro MD Work Phone: [facility] 07-09-2024 08:26-0500 Body mass index (BMI) [Ratio] 36.65 kg/m2 Lj Ribeiro MD Work Phone: [facility] 07-09-2024 08:26-0500 Body weight 106.14 kg Lj Ribeiro MD Work Phone: [facility] 07-09-2024 08:26-0500 Diastolic blood pressure 72 mm[Hg] Lj Ribeiro MD Work Phone: [facility] 07-09-2024 08:26-0500 Heart rate 58 /min Lj Ribeiro MD Work Phone: [facility] 07-09-2024 08:26-0500 SaO2% (BldA) [Mass fraction] 98 % Lj Ribeiro MD Work Phone: [facility] 07-09-2024 08:26-0500 Systolic blood pressure 132 mm[Hg] Lj Ribeiro MD Work Phone: [facility] Encounters Encounter Date Encounter Type Care Provider Facility Start: 01-20-2025 End: 01-20-2025 [facility] Start: 01-18-2025 End: 01-18-2025 [facility] Result Encounter Generic External Data Provider [facility] Unsolicited Start: 01-18-2025 End: 01-18-2025 [facility] Result Encounter Generic External Data Provider [facility] Unsolicited Start: 07-09-2024 End: 07-09-2024 Bamboo flowsheet Lj Ribeiro MD Work Phone: [facility] Start: 07-09-2024 End: 07-09-2024 Bamboo flowsheet Lj Ribeiro MD Work Phone: [facility] Start: 07-09-2024 End: 07-09-2024 Office outpatient visit 25 minutes Lj Ribeiro MD Work Phone: [facility] Comment on above: Primary hypertension (CMS/HCC) (Primary Dx); Coronary artery disease involving squaxin coronary artery of squaxin heart without angina pectoris (CMS/HCC); Type 2 diabetes mellitus without complication, without long-term current use of insulin (CMS/HCC); Mixed dyslipidemia (CMS/HCC); Pulmonary hypertension (CMS/HCC) Start: 07-09-2024 End: 07-09-2024 ambulatory LJ RIBEIRO Not Available Start: 02-23-2024 End: 02-23-2024 [facility] Start: 01-09-2024 End: 01-09-2024 ambulatory LJ RIBEIRO Not Available Start[facility] Start: 11-12-2022 End: 11-13-2022 ambulatory [facility] Facility:H1 Start: 03-10-2022 ambulatory [facility] Facili ty:H1 Start: 02-19-2022 End: 02-20-2022 ambulatory [facility] Facility:H1 Procedures Date Procedure Procedure Detail Performing Clinician Start: 01-18-2025 ALL LIPID PROFILE (FASTING) Generic External Data Provider Start: 01-18-2025 [facility] LIVER PANEL Generi c External Data Provider Start: 08-05-2020 Colonoscopy Lj short MD Work Phone: Plan of Treatment Date Care Activity Detail Author Start: 08-05-2030 Screening for malign ant neoplasm of colon [facility] Start: 04-07-2025 Influenza vaccination Influenz a Vaccine (Season Ended) [facility] Start: 09-24-2024 Hemoglobin A1c measurement Diabetes: Hemoglobin A1C [facility] Start: 07-09-2024 End: 07-09-2024 Patient encounter procedure 07/09/2024 8:30 AM EST Office Visit [facility] [address] [place] [address] Lj Ribeiro MD [address] [facility] [address] [place] [address] (Fax) Arrived [facility] Comment on above: Arrived Start: 04-07-2024 Influenza vaccination Influenza Vacc ine (#1) [facility] Start: 06-30-2023 Hemoglobin A1c measurement Diabetes: Hemoglobin A1C [facility] Start: 02-09-1983 Urine screening for protein Diabetes: Urine Protein Screening [facility] Start: 02-09-1974 Glaucoma screening Diabetes: R etinopathy Screening [facility] Start: 1965 Screening for malign ant neoplasm of colon [facility] Immunizations Immunization Date Immunization Notes Care Provider Fa cility 10-31-2018 tetanus toxoid, redu layton diphtheria toxoid, and acellular pertussis vaccine, adsorbed Lj Ribeiro MD Work Phone: [facility] Payers Date Payer Category Payer Medicaid [facility] [id number] 2022 Medicaid [id number] 1965 Unknown [id number] 1965 Unknown [id number] 1965 Unknown [id number] 1965 Unknown [id number] 1965 Unknown [id number] 1965 Unknown [id number] 1960 Self-pay 1960 Unknown [id number] Social History Date Type Detail Facility Start: 05-21-2023 Tobacco smoking stat [facility] Never smoked tobacco [facility] Start: 05-21-2023 Tobacco use and exposure Smoke less tobacco non-user [facility] Start: 01-09-2024 End: 07-09-2024 Alcoholic beverage intake Ex-drinker (finding) [facility] Start: 01-09-2024 End: 07-09-2024 History of Social function [facility] Start: 01-09-2024 End: 07-09-2024 Tobacco use panel [facility] Start: 1965 Sex assigned at Not on file [facility] Progress note 01-20-2025 Note Date & Type Note Facility 01-20-2025 Note [place] [facility] - [facility] Subjective Madelin De Leonjogre l Church is a 59 y.o. year old male patient being seen for 1 year follow up. Patient states he has been doing pretty good for the last several years with exercise, patient states he entered a 5k, patient states when he was jogging he got dizzy, SOB, BETH, and some mild chest pain, he stopped jogging and started walking fast the started jogging and and symptoms reappeared. Patient Active Problem List Diagnosis Angina pectoris Cardiovascular stress test abnormal Coronary arteriosclerosis Drug intolerance Dyspnea on exertion Electrocardiogram abnormal Hyperlipidemia Dysmetabolic syndrome X Gastroesophageal reflux disease Hypertension Mixed dyslipidemia Morbid obesity due to excess calories (CMS/HCC) Type 2 diabetes mellitus with hyperglycemia, without long-term current use of insulin ([facility]) Family History Family history unknown: Yes Social History Tobacco Use Smoking status: Never Smokeless tobacco: Never Substance Use Topics Alcohol use: Not Currently Drug use: Never HPI Fco is seen in follow up. He is a 59 yo man with prior history of CAD, s/p CABG in 2003 using BELTRAN to LAD, REUBEN to OM, saphenous venous graft to diagonal, and a sequential saphenous venous graft to PDA and posterolateral branch, with RCA ROUGH CARPENTER and stable angina and hyperlipidemia. At a [...] also on zetia and rosuvastatin. Today he is seen in follow-up and because he had issues running a [employer]. About 1 month ago he signed up for a 5K run and right before the race he took a sublingual nitro thinking that it is preventative of events during the running phase. During the run he felt short of breath, dizzy and lightheaded and nearly passed out so he had to stop. He had to walk most of the 5K. He reports that he did not really train for running 5K but he sometimes does the elliptical on and off without any issues. Other than that he has been free of angina. No clear shortness of breath with exertion. He has no leg edema. No palpitations. No passing out. Review of Systems Cardiovascular: Positive for dyspnea on exertion. Negative for chest pain. Respiratory: Positive for shortness of breath. Neurological: Positive for dizziness. Objective Visit Vitals BP 110/66 (BP Location: Left arm, Patient Position: Sitting) Pulse 65 Ht 1.702 m (5' 7 ) Wt 110 kg (243 lb) SpO2 95% BMI 38.06 kg/m??? Smoking Status Never BSA 2.28 m??? Physical Exam Constitutional: Appearance: He is [...] Allergen Reactions Atorvastatin Medications Current Outpatient Medications: alirocumab (Praluent Pen) 75 mg/mL pen injector, Inject 75 mg under the skin every 14 (fourteen) days., Disp: 6 mL, Rfl: 3 aspirin 81 mg EC tablet, Take 1 tablet every day by oral route., Disp: , Rfl: ezetimibe (Zetia) 10 mg tablet, Take 1 [...] directed., Disp: 90 tablet, Rfl: 3 metoprolol ta (more content not included)... [facility] History of Present illness Narrative 07-09-2024 Lj Ribeiro MD - 07/09/2024 8:30 AM EST Note Date & Type Note Facility 07-09-2024 History of Presen t illness Narrative Images from the original note were not included. Patient ID: Madelin Pulido is a 59 y.o. male who presents [...] 1 year. 2. Coronary artery disease involving squaxin coronary artery of squaxin heart without angina pectoris (CMS/HCC) Chronic problem, [...] evaluation and management. documented in this encounter [facility] Progress note 02-23-2024 Note Date & Type Note Facility 02-23-2024 Note [place] [facility] - [facility] Subjective Madelin Pulido Jr. is a 59 y.o. year old male [...] dyslipidemia Morbid obesity due to excess calories ([facility]) Type 2 diabetes mellitus with hyperglycemia, without long-term current use of insulin ([facility]) Family History Family history unknown: Yes Social [...] to PDA and posterolateral branch, with RCA ROUGH CARPENTER and stable angina and hyperlipidemia. At a [...] 40 mg tablet, (more content not included)... [facility] Evaluation note Note Date & Type Note Facility Evaluation note Diagnosis Primary hypertension (CMS/HCC)- Primary Unspecified essential hypertension Coronary artery disease involving squaxin coronary artery of squaxin heart without angina pectoris (CMS/HCC) Type 2 [...] pital DATE CREATED AUTHOR AUTHOR'S ORGANIZ ATION 07/10/2024 [facility] EPIC DATE CREATED AUTHOR AUTHOR'S ORGANIZ ATION 01/26/[address] [facility] Care Teams (unrecognized sec tion and content) Telegraph Installer Relationship Specialty Start Date End Date Lj Ribeiro MD [address] [place] [phone] (Fax) PCP - General Family Medicine 12/13/22 Lj Ribeiro MD [address] [place] [phone] (Fax) PCP - [facility] Jeffrey [facility] 11/06/23 Lj Ribeiro MD [address] [place] [phone] (Fax) Family Medicine 12/13/22 Telegraph Installer Relationship Specialty Start Date End Date Lj Ribeiro MD [address] [address] (Fax) PCP - General Family Medicine 12/13/22 Lj Ribeiro MD [address] [address] (Fax) PCP - [facility] 11/06/23 Lj Ribeiro MD [address] [place] [phone] (Fax) Family Medicine 12/13/22 Telegraph Installer Relationship Specialty Start Date End Date Lj Ribeiro MD [address] [place] [phone] (Fax) PCP - General Family Medicine 12/13/22 Lj Ribeiro MD 112 [facility] [address] [place] [address] PCP - MARLIN Murphy [facility] 11/06/23 Lj Ribeiro MD [address] [address] Family Medicine 12/13/22 Reason for Visit (unrecogniz [...] BE BASED ON THE PRIMARY CLINICAL RECORDS. [facility]. provides no warranty or guarantee of the accuracy or completeness of information in this document.
== END 2025-02-19 07:55 | disposition home or self-care (01) ==
LOC: CARD 07:56
PROVIDERS: PCP Family Medicine; Visit Provider Internal Medicine Interventional Cardiology
DX: R42 Dizziness and giddiness (principal); I25.10 Atherosclerotic heart disease of native coronary artery without angina pectoris
CPT/HCPCS: 93306

== ENCOUNTER 2025-02-24 09:55 | Outpatient (OUT) | payer MEDICAID, SELFPAY ==
--- OUTSIDE RECORDS SUMMARY | 2024-02-23 06:23 | XMS_ITS | Continuity of Care Document ---
Author Name [facility] Organization [facility] Care Team Providers Care Dental Secretary Name Role Phone 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 It does not include entries that were removed or entered in error. Problem Status Onset Date Problem Type Date of Resolution Comments Source Atherosclerosis of coronary artery without angina pectoris Active Condition [facility] Coronary arteriosclerosis (SNOMED CT 29739564) Active Condition [facility] Dysmetabolic syndrome X Active Condition [facility] Gastroesophageal Reflux Disease (SNOMED CT 666107066) Active Condition [facility] HTN - Hypertension (SNOMED CT 18049583) Active Condition [facility] Hyperlipidemia (SNOMED CT 71798642) Active Condition [facility] Medications Combined list of outpatient medications from Department of Defense and Veterans Affairs facilities.Medications provided include 1) outpatient medications from the last 15 months, and 2) patient-reported medications. Medication Details Route Status Patient Instructions Prescription Expires Prescription Number Last Dispense Date Ordering Provider Order Date Order Qty Source ASPIRIN 81MG TAB,CHEWABL E CHEW AND SWALLOW ONE TABLET BY MOUTH EVERY DAY ORAL ACTIVE MAIRANA JORDAN 2014 [facility] EZETIMIBE 10MG TAB TAKE ONE TABLET BY MOUTH EVERY DAY ORAL ACTIVE MARIANA JORDANTOPHER Duff 2018 [facility] FENOFIBRATE 145MG TAB TAKE ONE TABLET BY MOUTH EVERY DAY ORAL ACTIVE ZAC UGALDE 2020 [facility] ISOSORBIDE MONONITRATE 60MG TAB,SA TAKE ONE TABLET BY MOUTH EVERY DAY ORAL ACTIVE MARIANA JORDAN 2014 [facility] METOPROLOL TARTRATE 25MG TAB TAKE ONE-HALF TABLET BY MOUTH TWICE A DAY ORAL ACTIVE ZAC UGALDE 2020 [facility] RANOLAZINE 500MG TAB,SA TAKE ONE TABLET BY MOUTH EVERY 12 HOURS ORAL ACTIVE ZAC UGALDE [address] [facility] Allergies, Adverse Reactions, Alerts Combined list of allergies from Department of [facility] and [facility] facilities. It does not include entries that were removed or entered in error. Substance Category Reaction Severity Reaction type Status Date Reported Comments Source LIPITOR Propensity to adverse reactions to drug (finding) Muscle pain active 7 [facility] [place] Propensity to adverse reactions to food (finding) Urticaria active 4 [facility] Immunizations Combined list of available immunizations from the Department of [facility] and [facility] facilities. Immunization Series Date Given Administered By Site Reaction Lot Number CVX Code Drug Official Court Interpreter Status Comments Source TDAP 2018 115 complet ed [facility] Encounters Combined list of: 1) Encounters from Department of Veterans Affairs facilities going backup to the last 18 months, not all [place] inpatient encounters are included; 2) Encounters from the Department [facility] facilities going backup to 280 months. Location Location Details Encounter Type Encounter Number Reason For Visit Attending Provider ADM Date DC Date Status Disposition Source [facility] Outpatient Encounter [id number] 02/22 [facility] Social History Combined list of available smoking, tobacco, and other social history from Department of [facility] and Veterans Affairs facilities. Social History Type Response Date Comment Sourc e Tobacco smoking status NHIS VA-TOBACCO NEVER USED 07/12/2021 [facility] History of tobacco use VA-TOBACCO NEVER USED 05/12/2020 [facility] CRA[facility] History of tobacco use VA-TOBACCO NEVER USED 09/20/2018 [facility] CRA[facility] History of tobacco use LIFETIME NON-USER OF TOBACCO 01/16/2014 [facility] CRAVEN
--- OUTSIDE RECORDS SUMMARY | 2025-02-24 10:01 | XMS_ITS | Patient Health Record ---
Author Organization [facility] Address [address] [place] [address] Care Team Providers Care Court Advocate Name Role Phone Nasreen Sandoval Primary Care Provider Reason For Referral No Information Encounters Encounter Location Date Provider Diagnosis [facility] [address] [place] [address] 01/13/2025 Nasreen Sandoval Encounter for dental examination and cleaning with abnormal findings Z01.21 ; Other dental procedure status Z98.818 ; Disturbances in tooth eruption K00.6 ; Acute gingivitis, plaque induced K05.00 ; Dental caries on pit and fissure surface penetrating into dentin K02.52 ; Cracked tooth K03.81 and Necrosis of pulp K04.1 Assessments Encounter Date Diagnosis (ICD Code) Assessment Notes Treatment Notes Treatment Clinical Notes Section Notes 01/13/2025 Encounter for dental examination and cleaning with abnormal findings (ICD-10 - Z01.21) 01/13/2025 Other dental procedure status (ICD-10 - Z98.818) 01/13/2025 Disturbances in tooth eruption (ICD-10 - K00.6) 01/13/2025 Acute gingivitis, plaque induced (ICD-10 - K05.00) 01/13/2025 Dental caries on pit and fissure surface penetrating into dentin (ICD-10 - K02.52) 01/13/2025 Cracked tooth (ICD-10 - K03.81) 01/13/2025 Necrosis of pulp (ICD-10 - K04.1) Plan Of Treatment Next Appt Details Provider Name:Nasreen Sandoval, 05/07/2025 08:00:00 AM, [address] [place], [address], Provider Name:Nasreen Sandoval, 05/27/2025 08:30:00 AM, [address], [place], [address], Provider Name:Madhuri Moses , 09/12/2025 09:10:00 AM, [address], [place], [address], Insurance Providers Payer Name Payer Address Payer Phone Subscriber Number Group Number Insured Name Patient Relationship to Insured Coverage Start Date Coverage End Date [employer] [address] [address] [place] [address] [id number] MADELIN PULIDO Self - patient is the insured 5 [employer] [place] [employer] 24 [address] [facility] [place] [address] [id number] MADELIN PULIDO Self - patient is the insured 5 [employer] [facility] [place] [address] [place] [address] [id number] MADELIN PULIDO Self - patient is the insured 5
--- OUTSIDE RECORDS SUMMARY | 2025-02-24 10:01 | XMS_ITS | Encounter Summary ---
Author Organization [facility] Address [address] [place] [address] Care Team Providers Care Top Precipitator Operator Name Role Phone Harrison Saucedo MD Primary Care Provider [phone] Encounter Details Date Type Department Care Team (Late st Contact Info) Description 02/20/2025 Abstract [facility] [address] [place] [address] Nitesh Mcconnell MD [address] [facility] [address] [facility] [place] [place] [address] Social History Tobacco Use Types Packs/Day Years Used Date Smoking Tobacco: Never Smokeless Tobacco: Never Alcohol Use Standard Drinks/Week Comments Not Currently 0 (1 standard drink = 0.6 oz pur e alcohol) [place] Safety & Environment Answer Date Rec orded Fear of Current or Ex-Partner Not on file Emotionally Abused Not on file 09/28/2023 Physically Abused Not on file 09/28/2023 Sexually Abused Not on file 09/28/2023 Physically or Sexually Abused Not on file Sex and Gender Information Value Date Recorded Sex Assigned at Not on file Legal Sex Male 10:13 PM EDT Gender Identity Not on file Sexual Orientation Not on file documented as of this encounter Plan of Treatment Not on file documented as of this encounter Visit Diagnoses Not on filedocumented in this encounter Care Teams Top Precipitator Operator Relationship Specialty Start Date End Date Harrison Saucedo MD [address] [place] [address] (Fax) PCP - General 11/14/22 documented as of this encounter
--- OUTSIDE RECORDS SUMMARY | 2025-02-24 10:01 | XMS_ITS | Clinical Summary ---
Author Organization [facility] Address [address] [place] [address] Care Team Providers Care Spark Tester Name Role Phone Harrison Saucedo MD Primary Care Provider [phone] Allergies Active Allergy Reactions Criticality Noted Date Comments Atorvastatin 11/03/2022 Medications aspirin 81 mg EC tablet Take 1 tablet every day by oral route. Active fexofenadine (Nalini) 180 mg tablet Take 1 tablet as needed by oral route for 30 days. Active rosuvastatin (Crestor) 40 mg tabletIndications:C oronary artery disease involving chitina coronary artery of chitina heart without angina pectoris,Mixed hyperlipidemia Take 1 tablet (40 mg) by mouth at bedtime. 90 tablet 3 4 Active ranolazine (Ranexa) 1,000 mg 12 hr tabletIndications:C oronary artery disease involving chitina coronary artery of chitina heart without angina pectoris Take 1 tablet (1,000 mg) by mouth in the morning and at bedtime. Do not crush, chew, or split. 180 tablet 3 4 Active metoprolol tartrate (Lopressor) 25 mg tabletIndications:C oronary artery disease involving chitina coronary artery of chitina heart without angina pectoris,Cardiovasc ular stress test abnormal TAKE 1/2 (ONE-HALF) OF A TABLET BY MOUTH TWICE DAILY 90 tablet 3 4 Active isosorbide mononitrate ER (Imdur) 30 mg 24 hr tabletIndications:C oronary artery disease involving chitina coronary artery of chitina heart without angina pectoris,Cardiovasc ular stress test abnormal Take 1 tablet (30 mg) by mouth once daily as directed. 90 tablet 3 4 Active ezetimibe (Zetia) 10 mg tabletIndications:C oronary artery disease involving chitina coronary artery of chitina heart without angina pectoris,Mixed hyperlipidemia Take 1 tablet (10 mg) by mouth once daily as directed. 90 tablet 3 4 Active nitroglycerin (Nitrostat) 0.4 mg SL tabletIndications:C oronary artery disease involving chitina coronary artery of chitina heart without angina pectoris Place 1 tablet (0.4 mg) under the tongue every 5 (five) minutes if needed for chest pain. 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 6 mL 3 5 01/07/20 26 Active fenofibrate (Lofibra) 160 mg tabletIndications:M ixed hyperlipidemia Take 1 tablet (160 mg) by mouth once daily as directed. Need apt for further refills 90 tablet 3 5 01/07/20 26 Active Active Problems Problem Noted Date Diagnosed Date Gastroesophageal reflux disease 02/23/2024 Hypertension 02/23/2024 Dysmetabolic syndrome X 05/22/2023 Type 2 diabetes mellitus wit h hyperglycemia, without long-term current use of insulin 05/22/2023 Mixed dyslipidemia 05/16/2023 Morbid obesity due to excess calories 05/16/2023 Angina pectoris 07/05/2022 Cardiovascular stress test abnormal 07/05/2022 Coronary arteriosclerosis 07/05/2022 Drug intolerance 07/05/2022 Dyspnea on exertion 07/05/2022 Electrocardiogram abnormal 07/05/2022 Hyperlipidemia 07/05/2022 Encounters Date Type Department Care Team Description 02/20/2025 Abstract [facility] [address] [place] [address] Nitesh Mcconnell MD 01/20/2025 9:15 AM EDT Office Visit [facility] [address] [place] [address] Nitesh Mcconnell MD 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 (Primary Dx); Mixed hyperlipidemia; History of coronary artery bypass surgery; Cardiovascular stress test abnormal; Dizziness 01/20/2025 Orders Only [facility] [address] [place] [address] Nitesh Mcconnell MD 01/06/2025 Refill [facility] [address] [place] [address] Dora Bradshaw MA 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; Mixed hyperlipidemia 12/27/2024 Orders Only [facility] [address] [place] [address] Tami Reynolds MA Hyperlipidemia, unspecified hyperlipidemia type from Last 3 Months Social History Tobacco Use Types Packs/Day Years Used Date Smoking Tobacco: Never Smokeless Tobacco: Never Tobacco Cessation:Counseling Given: Not Answered Alcohol Use Standard Drinks/Week Comments Not Currently [...] on file Sexual Orientation Not on file Last Filed Vital Signs Vital Sign Reading Time Taken Comments Blood Pressure 110/66 01/20/2025 8:53 AM EDT Pulse 65 01/20/2025 8:53 AM EDT Temperature - - Respiratory Rate - - Oxygen Saturation 95% 01/20/2025 8:53 AM EDT Inhaled Oxygen Concentration - - Weight 110 kg (243 lb) 01/20/2025 8:53 AM EDT Height 170.2 cm (5' 7 ) 01/20/2025 8:53 AM EDT Body Mass Index 38.06 01/20/2025 8:53 AM EDT Plan of Treatment Health Maintenance Due Date Last Done Comments CT Colonography 1964 FIT-DNA 1964 FIT 1964 FOBT 1964 Sigmoidoscopy 1964 Diabetes: Retinopathy Screening 02/09/1974 Depression Screening 1976 Diabetes: Urine Protein Screening 02/09/1983 Pneumococcal Vaccine: Pediatrics (0 to 5 Years) and At-Risk Patients (6 to 64 Years) (1 of 2 - PCV) 02/09/1983 Zoster Vaccines (1 of 2) 02/09/2014 COVID-19 Vaccine (1 - 2023-2 5 season) 2024 Diabetes: Hemoglobin A1C 09/24/2024 024, 03/30/2023 Influenza Vaccine (#1) 2025 Adult Tetanus 10/31/2028 10/31/2018 Colonoscopy 08/05/2030 08/05/2020 Colorectal Cancer Screening 08/05/2030 HIB Vaccines Aged Out No longer eligi ble based on patient's age to complete this topic HPV Vaccines Aged Out No longer eligi ble based on patient's age to complete this topic IPV Vaccines Aged Out No longer eligi ble based on patient's age to complete this topic Meningococcal B Vaccine Aged Out No l onger eligible based on patient's age to complete this topic Meningococcal Vaccine Aged Out No jalen antonio eligible based on patient's age to complete this topic Rotavirus Vaccines Aged Out No longer eligible based on patient's age to complete this topic Procedures Procedure Name Priority Date/Time Associated Diagnosis Comments ECG 12-LEAD Routine 01/20/2025 10:45 AM EDT 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 Dizziness LIPID PANEL Routine 01/18/2025 8:41 AM EDT HEPATIC FUNCTION PANEL Routine 01/18/2025 8:41 AM EDT from Last 3 Months Results * ECG 12 lead (01/20/2025 10:45 AM EDT) us Nitesh Mcconnell MD ECG ORDERABLES Final Result * Hepatic function panel (01/18/2025 8:41 AM EDT) Blood Venous blood specimen / Unknown us Nitesh Mcconnell MD LAB BLOOD ORDERABLES Final R esult * Lipid panel (01/18/2025 8:41 AM EDT) Blood Venous blood specimen / Unknown Nitesh Mcconnell MD LAB BLOOD ORDERABLES Final R esult from Last 3 Months Insurance [facility] MEDICAID Care Teams Spark Tester Relationship Specialty Start Date End Date Harrison Saucedo MD [address] [place] [address] PCP - General 11/14/22
[2025-02-24 11:43] LABS: Alanine Aminotransferase 38 U/L (16-63); Albumin Globulin Ratio 1.1; Albumin Level 3.7 g/dL (3.4-5.0); Alkaline Phosphatase 51 U/L (46-116); Anion Gap 13.7; Aspartate Amino Transferase 30 U/L (15-37); Blood Urea Nitrogen 19.0 mg/dL (7.0-18.0); Calcium 9.4 mg/dL (8.5-10.1); Carbon Dioxide 28.0 mmol/L (21.0-32.0); Chloride 107 mmol/L (98-107); Estimated GFR (African America >60 (>=60 mL/min/1.73m^2); Estimated GFR (Non-African Ame >60 (>=60 mL/min/1.73m^2); Globulin 3.3 g/dL; Glucose 132 mg/dL (74-106); Potassium 4.7 mmol/L (3.5-5.1); Sodium 144 mmol/L (136-145); Total Protein 7.0 g/dL (6.4-8.2)
== END 2025-02-24 09:56 | disposition home or self-care (01) ==
LOC: LAB 09:57
PROVIDERS: PCP Family Medicine; Visit Provider Family Medicine
DX: E88.810 Metabolic syndrome (principal); I10 Essential (primary) hypertension; E11.9 Type 2 diabetes mellitus without complications
CPT/HCPCS: 36415; 80053; 82043; 82570; 83036